=== PATIENT | female | born 1995 ===

== ENCOUNTER 2021-03-21 17:03 | Inpatient (IN) ==
[2021-03-21 19:01] LABS: ABS Basophils 0.1 10^3/ul (0-0.2); ABS Eosinophils 0.1 10^3/ul (0-0.6); ABS Lymphocytes 1.7 10^3/ul (1.0-4.8); ABS Monocytes 0.4 10^3/ul (0-0.8); ABS Neutrophils 4.1 10^3/ul (1.5-7.7); Eosinophil % 1.2 %; Hematocrit 39 % (35-47); Hemoglobin 13.1 g/dL (12.0-16.0); Lymphocyte % 26.5 %; Mean Corpuscular HGB Conc 34 g/dL (31-36); Mean Corpuscular Hemoglobin 31 pg (27-31); Mean Corpuscular Volume 91 fL (80-97); Mean Platelet Volume 9.5 fL (7.4-10.4); Platelet Count 186 10^3/uL (150-450); Red Cell Distribution Width 13 % (10-15); White Blood Count 6.3 10^3/uL (3.5-10.8)
[2021-03-21 19:18] LABS: ALT 8 U/L (7-52); AST 15 U/L (13-39); Albumin 4.4 g/dL (3.2-5.2); Albumin/Globulin Ratio 1.8 (1-3); Alkaline Phosphatase 48 U/L (35-149); Anion Gap 6 mmol/L (2-11); Blood Urea Nitrogen 9 mg/dL (6-24); CO2 Carbon Dioxide 27 mmol/L (22-32); Calcium 9.5 mg/dL (8.6-10.3); Chloride 105 mmol/L (101-111); Globulin 2.4 g/dL (2-4); Glucose 87 mg/dL (70-100); Sodium 138 mmol/L (135-145); Total Protein 6.8 g/dL (6.4-8.9)
[2021-03-21 19:25] LABS: HCG Pregnancy < 0.60 mIU/mL
[2021-03-21 19:29] LABS: Acetaminophen < 15 mcg/mL; Alcohol, S < 13 mg/dL (<13); Salicylate < 2.50 mg/dL (<30)
[2021-03-21 19:43] LABS: TSH Ultra Thyroid Stim Horm 1.46 mcIU/mL (0.34-5.60)
[2021-03-21 19:45] LABS: Urine Appearance Clear; Urine Bilirubin Negative (Negative); Urine Blood 1+ (Negative); Urine Color Straw; Urine Glucose Negative (Negative); Urine Ketones Trace (Negative); Urine Nitrite Negative (Negative); Urine Protein Negative (Negative); Urine Specific Gravity 1.005 (1.002-1.030); Urine Urobilinogen Negative (Negative)
[2021-03-21 19:48] LABS: Urine Bacteria 1+ (Absent); Urine Red Blood Cell Trace(0-2/hpf) (Absent); Urine Squamous Epithelial Cell Present (Absent); Urine White Blood Cell Trace(0-5/hpf) (Absent)
[2021-03-21 20:02] LABS: Urine Benzodiazepine Screen None Detected (None Detect); Urine Cannabinoids Screen None Detected (None Detect); Urine Opiates Screen None Detected (None Detect)
[2021-03-22 07:34] LABS: Rapid COVID-19 Molecular Undetected (Undetected)
[2021-03-22] MEDS ORDERED: Al Hydrox/Mg Hydrox/Simet LIQ 30 ML UDC PO PRN (11:23)
[2021-03-22] MEDS ORDERED: diPHENhydraMINE 25 mg TAB PO PRN (16:10)
[2021-03-22] MEDS: BREXPIPRAZOLE 2 MG PO SCH (20:29)
[2021-03-23 07:42] LABS: HDL Cholesterol 56.6 mg/dL
[2021-03-23] MEDS: Vitamin THERAPEUTIC TAB PO SCH (09:01)
[2021-03-23] MEDS: BREXPIPRAZOLE 2 MG PO SCH (20:12)
[2021-03-24 09:44] VITALS: BP 122/68
[2021-03-24] MEDS: Vitamin THERAPEUTIC TAB PO SCH (09:54)
== END 2021-03-24 18:00 | disposition home or self-care (01) | DRG 885 ==
LOC: ED 17:03 → BSU 03-22 05:45
PROVIDERS: ADMIT Psychiatry & Neurology Psychiatry; ATTEND Psychiatry & Neurology Psychiatry